=== PATIENT | male | born 1940 | race Caucasian/White ===

== ENCOUNTER 2016-11-24 21:38 | Inpatient (IN) | payer OTHER ==
[~2016-11-24] VITALS: Ht 177.8 cm; Wt 101.3 kg
[2016-11-24 21:05] VITALS: BP_SYST 111; BP_SYST 115; BP_SYST 122; BP_DIAS 66; BP_DIAS 72; BP_DIAS 76
[2016-11-24] MEDS ORDERED: ERGO500017 PO (22:47)
[2016-11-24] MEDS ORDERED: SPIR25TA PO (22:47)
[2016-11-24] MEDS ORDERED: DIGO125T PO (22:47)
[2016-11-24] MEDS ORDERED: DABI150C PO (22:47)
[2016-11-24] MEDS ORDERED: TAMS0.4C2 PO (22:47)
[2016-11-24] MEDS ORDERED: LEVO75TA5 PO (22:47)
[2016-11-24] MEDS ORDERED: ALLO300T PO (22:47)
[2016-11-24] MEDS ORDERED: FURO80TA3 PO (22:47)
[2016-11-24] MEDS ORDERED: SIMV40TA3 PO (22:47)
[2016-11-24 23:19] LABS: HEMATOCRIT 38.3 % (39.2-51.8); HEMOGLOBIN 12.7 g/dL (13.7-18.0); WHITE BLOOD COUNT 9.3 x10^3/uL (3.4-10)
[2016-11-24 23:27] LABS: BLOOD UREA NITROGEN 44 mg/dL (7-18)
[2016-11-24] MEDS: SIMVASTATIN 40 MG TABLET PO SCH (23:30)
[2016-11-24] MEDS ORDERED: DIPHENHYDRAMINE 25 MG CAPSULE PO PRN (23:30)
[2016-11-24 23:35] LABS: ASPARTATE AMINO TRANSFERASE 23 U/L (15-37)
[2016-11-24 23:40] LABS: IS PT STATUS REG ER OR PRE ER? NO
[2016-11-25 02:00] VITALS: BP 106/67
[2016-11-25 05:36] LABS: IS PT STATUS REG ER OR PRE ER? NO
[2016-11-25 08:00] VITALS: BP 96/58
[2016-11-25] MEDS ORDERED: REGADENOSON 0.4 MG/5 ML SYRINGE ONE (08:25)
[2016-11-25] MEDS ORDERED: DABIGATRAN 150 MG CAPSULE PO SCH ×3 (09:00→21:00)
[2016-11-25] MEDS ORDERED: DIGOXIN 0.125 MG TABLET PO SCH (09:00)
[2016-11-25] MEDS ORDERED: ALLOPURINOL 300 MG TABLET PO SCH ×2 (09:00)
[2016-11-25] MEDS ORDERED: SPIRONOLACTONE 25 MG TABLET PO SCH (09:00)
[2016-11-25] MEDS: TAMSULOSIN 0.4 MG CAP.ER.24H PO SCH (09:29)
[2016-11-25] MEDS: FUROSEMIDE 80 MG TABLET PO SCH (09:29)
[2016-11-25] MEDS: LEVOTHYROXINE 75 MCG TABLET PO SCH (09:29)
[2016-11-25] MEDS: ALLOPURINOL 300 MG TABLET PO SCH (09:30)
[2016-11-25] MEDS: DIGOXIN 0.125 MG TABLET PO SCH (09:30)
[2016-11-25] MEDS: SPIRONOLACTONE 25 MG TABLET PO SCH (09:30)
[2016-11-25 15:56] VITALS: BP 97/60
[2016-11-25] MEDS: SIMVASTATIN 40 MG TABLET PO SCH (20:10)
[2016-11-25 20:35] VITALS: BP 107/55
[2016-11-26 03:39] VITALS: BP 99/62
[2016-11-26 08:20] VITALS: BP 109/66
[2016-11-26] MEDS: ALLOPURINOL 300 MG TABLET PO SCH (08:39)
[2016-11-26] MEDS: SPIRONOLACTONE 25 MG TABLET PO SCH (08:39)
[2016-11-26] MEDS: DIGOXIN 0.125 MG TABLET PO SCH (08:39)
[2016-11-26] MEDS: TAMSULOSIN 0.4 MG CAP.ER.24H PO SCH (08:39)
[2016-11-26] MEDS: LEVOTHYROXINE 75 MCG TABLET PO SCH (08:39)
[2016-11-26] MEDS: FUROSEMIDE 80 MG TABLET PO SCH (08:40)
[2016-11-26 10:25] LABS: BLOOD UREA NITROGEN 39 mg/dL (7-18)
[2016-11-26] MEDS: DABIGATRAN 75 MG CAPSULE PO SCH ×2 (11:25→21:36)
[2016-11-26 14:42] VITALS: BP 104/64
[2016-11-26 20:39] VITALS: BP 109/70
[2016-11-26] MEDS: SIMVASTATIN 40 MG TABLET PO SCH (21:36)
[2016-11-27 02:40] VITALS: BP 106/69
[2016-11-27 04:15] LABS: BLOOD UREA NITROGEN 40 mg/dL (7-18)
[2016-11-27] MEDS: LEVOTHYROXINE 75 MCG TABLET PO SCH (06:20)
[2016-11-27 08:00] VITALS: BP 108/70
[2016-11-27] MEDS: POTASSIUM CHLORIDE 10 MEQ TABLET.ER PO SCH ×2 (09:00→21:21)
[2016-11-27] MEDS ORDERED: ALLOPURINOL 300 MG TABLET PO SCH (09:00)
[2016-11-27] MEDS ORDERED: POTASSIUM CHLORIDE 10% 20 MEQ/15 ML UDC PO SCH (09:00)
[2016-11-27] MEDS: ALLOPURINOL 100 MG TABLET PO SCH (09:58)
[2016-11-27] MEDS: FUROSEMIDE 20 MG/2 ML IV SCH ×2 (10:10→17:47)
[2016-11-27] MEDS: TAMSULOSIN 0.4 MG CAP.ER.24H PO SCH (10:10)
[2016-11-27] MEDS: DIGOXIN 0.125 MG TABLET PO SCH (10:11)
[2016-11-27] MEDS: DABIGATRAN 75 MG CAPSULE PO SCH ×2 (10:11→21:21)
[2016-11-27 13:47] VITALS: BP 108/71
[2016-11-27 20:00] VITALS: BP 104/68
[2016-11-27] MEDS: SIMVASTATIN 40 MG TABLET PO SCH (21:21)
[2016-11-28 02:29] VITALS: BP 106/70
[2016-11-28 04:58] LABS: BLOOD UREA NITROGEN 33 mg/dL (7-18)
[2016-11-28] MEDS: LEVOTHYROXINE 75 MCG TABLET PO SCH (06:34)
[2016-11-28 07:25] VITALS: BP 117/76
[2016-11-28] MEDS: ALLOPURINOL 100 MG TABLET PO SCH (09:59)
[2016-11-28] MEDS: TAMSULOSIN 0.4 MG CAP.ER.24H PO SCH (09:59)
[2016-11-28] MEDS: DIGOXIN 0.125 MG TABLET PO SCH (09:59)
[2016-11-28] MEDS: POTASSIUM CHLORIDE 10 MEQ TABLET.ER PO SCH ×2 (10:00→20:14)
[2016-11-28] MEDS: FUROSEMIDE 20 MG/2 ML IV SCH ×3 (10:01→19:56)
[2016-11-28 14:17] VITALS: BP 103/64
[2016-11-28 18:41] VITALS: BP 110/67
[2016-11-28] MEDS: SIMVASTATIN 40 MG TABLET PO SCH (19:58)
[2016-11-29 01:50] VITALS: BP 103/64
[2016-11-29 04:54] LABS: BLOOD UREA NITROGEN 33 mg/dL (7-18)
[2016-11-29] MEDS: LEVOTHYROXINE 75 MCG TABLET PO SCH (06:48)
[2016-11-29] MEDS ORDERED: SODIUM BICARB 8.4%,50ML SYR. 150 MEQ in DEXTROSE 5% 1,000 ML IV SCH (07:44)
[2016-11-29] MEDS: TAMSULOSIN 0.4 MG CAP.ER.24H PO SCH (08:14)
[2016-11-29] MEDS: ALLOPURINOL 100 MG TABLET PO SCH (08:14)
[2016-11-29] MEDS: DIGOXIN 0.125 MG TABLET PO SCH (08:14)
[2016-11-29] MEDS: POTASSIUM CHLORIDE 10 MEQ TABLET.ER PO SCH ×2 (08:14→20:22)
[2016-11-29 08:32] VITALS: BP 115/73
[2016-11-29] MEDS: ACETYLCYSTEINE 600 MG CAPSULE PO SCH ×3 (10:49→20:22)
[2016-11-29 13:45] VITALS: BP 100/63
[2016-11-29] MEDS ORDERED: LIDOCAINE 2%, 20ML ONE (14:54)
[2016-11-29] MEDS ORDERED: HEPARIN 1,000 UNITS/ML, 10ML ONE (14:54)
[2016-11-29] MEDS ORDERED: VERAPAMIL 2.5 MG/ML, 2ML ONE (14:54)
[2016-11-29] MEDS ORDERED: FENTANYL PF 100 MCG/2ML ONE (14:54)
[2016-11-29] MEDS ORDERED: BIVALIRUDIN 250 MG ONE (14:54)
[2016-11-29] MEDS ORDERED: MIDAZOLAM 1 MG/ML, 5ML ONE (14:54)
[2016-11-29] MEDS ORDERED: TICAGRELOR 90 MG TABLET ONE (14:54)
[2016-11-29] MEDS: FUROSEMIDE 40 MG/4 ML IV SCH ×2 (17:26→20:22)
[2016-11-29 19:30] VITALS: BP 95/56
[2016-11-29] MEDS: SIMVASTATIN 40 MG TABLET PO SCH (20:22)
[2016-11-30 01:36] VITALS: BP 102/66
[2016-11-30 06:13] LABS: BLOOD UREA NITROGEN 32 mg/dL (7-18)
[2016-11-30] MEDS: TAMSULOSIN 0.4 MG CAP.ER.24H PO SCH (08:45)
[2016-11-30] MEDS: DIGOXIN 0.125 MG TABLET PO SCH (08:46)
[2016-11-30] MEDS: LEVOTHYROXINE 75 MCG TABLET PO SCH (08:46)
[2016-11-30] MEDS: POTASSIUM CHLORIDE 10 MEQ TABLET.ER PO SCH ×2 (08:46→20:14)
[2016-11-30] MEDS: ALLOPURINOL 100 MG TABLET PO SCH (08:46)
[2016-11-30 08:50] VITALS: BP 97/60
[2016-11-30] MEDS: FUROSEMIDE 40 MG/4 ML IV SCH ×3 (08:58→20:14)
[2016-11-30 15:56] VITALS: BP 104/70
[2016-11-30 19:50] VITALS: BP 101/64
[2016-11-30] MEDS: SIMVASTATIN 40 MG TABLET PO SCH (20:14)
[2016-12-01 02:30] VITALS: BP 96/60
[2016-12-01 05:29] LABS: HEMOGLOBIN 12.4 g/dL (13.7-18.0); WHITE BLOOD COUNT 9.5 x10^3/uL (3.4-10)
[2016-12-01 05:34] LABS: BLOOD UREA NITROGEN 37 mg/dL (7-18)
[2016-12-01] MEDS: LEVOTHYROXINE 75 MCG TABLET PO SCH (06:08)
[2016-12-01 08:26] VITALS: BP 99/61
[2016-12-01] MEDS: FUROSEMIDE 40 MG/4 ML IV SCH (08:44)
[2016-12-01] MEDS: TAMSULOSIN 0.4 MG CAP.ER.24H PO SCH (08:44)
[2016-12-01] MEDS: POTASSIUM CHLORIDE 10 MEQ TABLET.ER PO SCH ×2 (08:44→21:24)
[2016-12-01] MEDS: ALLOPURINOL 100 MG TABLET PO SCH (08:44)
[2016-12-01] MEDS: DIGOXIN 0.125 MG TABLET PO SCH (08:44)
[2016-12-01 11:14] VITALS: BP 84/47
[2016-12-01 15:40] VITALS: BP 111/71
[2016-12-01] MEDS: FUROSEMIDE 80 MG TABLET PO SCH (18:29)
[2016-12-01 18:50] VITALS: BP 109/72
[2016-12-01] MEDS: SIMVASTATIN 40 MG TABLET PO SCH (21:24)
[2016-12-02 01:45] VITALS: BP 103/67
[2016-12-02 05:56] LABS: HEMATOCRIT 36.6 % (39.2-51.8); HEMOGLOBIN 12.1 g/dL (13.7-18.0); WHITE BLOOD COUNT 8.9 x10^3/uL (3.4-10)
[2016-12-02 06:18] LABS: BLOOD UREA NITROGEN 45 mg/dL (7-18)
[2016-12-02] MEDS: LEVOTHYROXINE 75 MCG TABLET PO SCH (06:39)
[2016-12-02 07:03] VITALS: BP 108/67
[2016-12-02] MEDS: ALLOPURINOL 100 MG TABLET PO SCH (07:55)
[2016-12-02] MEDS: FUROSEMIDE 80 MG TABLET PO SCH (07:55)
[2016-12-02] MEDS: POTASSIUM CHLORIDE 10 MEQ TABLET.ER PO SCH ×2 (07:55→20:59)
[2016-12-02] MEDS: TAMSULOSIN 0.4 MG CAP.ER.24H PO SCH (07:56)
[2016-12-02] MEDS: DIGOXIN 0.125 MG TABLET PO SCH (07:56)
[2016-12-02] MEDS ORDERED: DOPAMINE/D5W PMX 250 ML IV PRN (10:30)
[2016-12-02] MEDS: FUROSEMIDE 40 MG TABLET PO SCH ×2 (10:40→15:57)
[2016-12-02 12:49] VITALS: BP 95/56
[2016-12-02] MEDS: ONDANSETRON 2MG/ML, 2ML IVPush PRN (19:57)
[2016-12-02 20:32] VITALS: BP 99/55
[2016-12-02] MEDS: SIMVASTATIN 40 MG TABLET PO SCH (20:59)
[2016-12-03 02:54] VITALS: BP 114/61
[2016-12-03 04:31] LABS: HEMATOCRIT 38.3 % (39.2-51.8); HEMOGLOBIN 12.6 g/dL (13.7-18.0); WHITE BLOOD COUNT 11.5 x10^3/uL (3.4-10)
[2016-12-03 04:40] LABS: BLOOD UREA NITROGEN 52 mg/dL (7-18)
[2016-12-03] MEDS: LEVOTHYROXINE 75 MCG TABLET PO SCH (06:03)
[2016-12-03] MEDS: ONDANSETRON 2MG/ML, 2ML IVPush PRN ×2 (06:06→12:32)
[2016-12-03 07:34] VITALS: BP 100/56
[2016-12-03] MEDS: TAMSULOSIN 0.4 MG CAP.ER.24H PO SCH (09:13)
[2016-12-03] MEDS: DIGOXIN 0.125 MG TABLET PO SCH (09:14)
[2016-12-03] MEDS: ALLOPURINOL 100 MG TABLET PO SCH (09:14)
[2016-12-03] MEDS ORDERED: PROMETHAZINE 25 MG/ML, 1ML IM PRN (13:00)
[2016-12-03] MEDS: POTASSIUM CHLORIDE 10 MEQ TABLET.ER PO SCH ×2 (13:17→19:47)
[2016-12-03] MEDS ORDERED: DIPHENHYDRAMINE 50 MG CAPSULE PO PRN (14:52)
[2016-12-03 15:05] VITALS: BP 118/73
[2016-12-03 16:40] VITALS: BP 114/69
[2016-12-03] MEDS: SIMVASTATIN 40 MG TABLET PO SCH (19:48)
[2016-12-03 20:36] VITALS: BP 115/73
[2016-12-04 01:34] VITALS: BP 100/66
[2016-12-04 05:55] LABS: HEMATOCRIT 39.7 % (39.2-51.8); HEMOGLOBIN 12.9 g/dL (13.7-18.0); WHITE BLOOD COUNT 9.6 x10^3/uL (3.4-10)
[2016-12-04] MEDS: LEVOTHYROXINE 75 MCG TABLET PO SCH (06:00)
[2016-12-04 06:47] LABS: ASPARTATE AMINO TRANSFERASE 25 U/L (15-37); BLOOD UREA NITROGEN 58 mg/dL (7-18)
[2016-12-04 07:11] VITALS: BP 97/58
[2016-12-04] MEDS ORDERED: FUROSEMIDE 100 MG/10 ML IV ONE (09:00)
[2016-12-04] MEDS ORDERED: FUROSEMIDE 40 MG/4 ML ONE (09:05)
[2016-12-04] MEDS: TAMSULOSIN 0.4 MG CAP.ER.24H PO SCH (09:31)
[2016-12-04] MEDS: DIGOXIN 0.125 MG TABLET PO SCH (09:31)
[2016-12-04] MEDS: POTASSIUM CHLORIDE 10 MEQ TABLET.ER PO SCH (09:32)
[2016-12-04] MEDS: ALLOPURINOL 100 MG TABLET PO SCH (09:35)
[2016-12-04 13:28] VITALS: BP 109/58
[2016-12-04 14:05] LABS: BLOOD UREA NITROGEN 62 mg/dL (7-18)
[2016-12-04 20:35] VITALS: BP 106/67
[2016-12-04] MEDS: HEPARIN 5,000 UNITS/ML, 1ML SQ SCH (20:42)
[2016-12-04] MEDS: SIMVASTATIN 40 MG TABLET PO SCH (20:42)
[2016-12-05] VITALS (8 sets, daily range): BP systolic 93–117; BP diastolic 57–65
[2016-12-05] MEDS: HEPARIN 5,000 UNITS/ML, 1ML SQ SCH (04:12)
[2016-12-05] MEDS: LEVOTHYROXINE 75 MCG TABLET PO SCH (04:12)
[2016-12-05 05:45] LABS: HEMATOCRIT 37.4 % (39.2-51.8); HEMOGLOBIN 12.4 g/dL (13.7-18.0)
[2016-12-05 06:15] LABS: BLOOD UREA NITROGEN 60 mg/dL (7-18)
[2016-12-05] MEDS: TAMSULOSIN 0.4 MG CAP.ER.24H PO SCH ×2 (09:00→19:00)
[2016-12-05] MEDS: DIGOXIN 0.125 MG TABLET PO SCH (09:00)
[2016-12-05] MEDS ORDERED: FILTER 0.22 MICRON FOR AMIODARONE IV PRN (09:30)
[2016-12-05] MEDS ORDERED: AMIODARONE 150 MG in DEXTROSE 5% 100 ML IV ONE (09:30)
[2016-12-05] MEDS: ALLOPURINOL 100 MG TABLET PO SCH (09:47)
[2016-12-05] MEDS ORDERED: FENTANYL PF 100 MCG/2ML ONE (13:17)
[2016-12-05] MEDS ORDERED: MIDAZOLAM 1 MG/ML, 5ML ONE ×2 (13:17)
[2016-12-05] MEDS ORDERED: LIDOCAINE 2%, 20ML ONE (13:49)
[2016-12-05] MEDS ORDERED: LIDOCAINE 1%, 20ML ONE (13:49)
[2016-12-05] MEDS ORDERED: FLUMAZENIL 0.1 MG/1 ML, 5ML ONE (14:08)
[2016-12-05] MEDS ORDERED: CEFAZOLIN PMX 1GM/50ML 50 ML ONE (14:41)
[2016-12-05] MEDS: SIMVASTATIN 40 MG TABLET PO SCH (21:00)
[2016-12-06 02:00] VITALS: BP 96/59
[2016-12-06 05:57] LABS: HEMATOCRIT 37.9 % (39.2-51.8); HEMOGLOBIN 12.4 g/dL (13.7-18.0); WHITE BLOOD COUNT 8.4 x10^3/uL (3.4-10)
[2016-12-06 06:10] LABS: BLOOD UREA NITROGEN 39 mg/dL (7-18)
[2016-12-06] MEDS: LEVOTHYROXINE 75 MCG TABLET PO SCH (06:21)
[2016-12-06 07:43] VITALS: BP 99/63
[2016-12-06] MEDS: DIGOXIN 0.125 MG TABLET PO SCH (09:46)
[2016-12-06] MEDS: ALLOPURINOL 100 MG TABLET PO SCH (09:46)
[2016-12-06 10:45] LABS: PTH INTACT INTERPRETATION ** Comment **
[2016-12-06 11:13] LABS: PARATHYROID HORMONE INTACT 106.5 pg/mL (14-72)
[2016-12-06 14:31] VITALS: BP 88/56
[2016-12-06 14:33] VITALS: BP 93/56
[2016-12-06 15:18] VITALS: BP 112/66
[2016-12-06] MEDS ORDERED: WARFARIN 5 MG TABLET PO-COUM ONE (18:00)
[2016-12-06] MEDS: SIMVASTATIN 40 MG TABLET PO SCH (20:39)
[2016-12-06] MEDS: TAMSULOSIN 0.4 MG CAP.ER.24H PO SCH (20:39)
[2016-12-06 21:39] VITALS: BP 96/55
[2016-12-07 01:43] VITALS: BP 94/59
[2016-12-07] MEDS: LEVOTHYROXINE 75 MCG TABLET PO SCH (05:26)
[2016-12-07 05:59] LABS: HEMATOCRIT 36.3 % (39.2-51.8); WHITE BLOOD COUNT 8.3 x10^3/uL (3.4-10)
[2016-12-07 06:10] LABS: BLOOD UREA NITROGEN 29 mg/dL (7-18)
[2016-12-07 06:13] LABS: ASPARTATE AMINO TRANSFERASE 26 U/L (15-37)
[2016-12-07 07:49] VITALS: BP 98/61
[2016-12-07] MEDS: TAMSULOSIN 0.4 MG CAP.ER.24H PO SCH (08:44)
[2016-12-07] MEDS: ALLOPURINOL 100 MG TABLET PO SCH (08:44)
[2016-12-07] MEDS: DIGOXIN 0.125 MG TABLET PO SCH (08:44)
[2016-12-07] MEDS ORDERED: BISACODYL 10 MG SUPP PR PRN (10:00)
[2016-12-07 10:05] LABS: HEP B SURF. AB < 3.1 mIU/mL (0.0-10.0)
[2016-12-07 15:02] VITALS: BP 102/58
[2016-12-07] MEDS: IRON SUCROSE COMPLEX 100MG/5ML IV SCH (15:02)
[2016-12-07] MEDS: DOCUSATE 100 MG CAPSULE PO SCH (15:02)
[2016-12-07] MEDS ORDERED: WARFARIN 5 MG TABLET PO-COUM ONE (18:00)
[2016-12-07 19:06] VITALS: BP 103/61
[2016-12-07] MEDS: SENNA/DOCUSATE TABLET PO SCH (20:33)
[2016-12-07] MEDS: SIMVASTATIN 40 MG TABLET PO SCH (20:33)
[2016-12-07] MEDS ORDERED: ALBUMIN HUMAN 25% 50 ML IV PRN (23:00)
[2016-12-07] MEDS ORDERED: ALBUMIN HUMAN 25% 100 ML IV PRN (23:00)
[2016-12-08] VITALS (7 sets, daily range): BP systolic 81–98; BP diastolic 54–68
[2016-12-08 04:53] LABS: HEMATOCRIT 35.3 % (39.2-51.8); HEMOGLOBIN 11.6 g/dL (13.7-18.0); WHITE BLOOD COUNT 8.9 x10^3/uL (3.4-10)
[2016-12-08 05:03] LABS: BLOOD UREA NITROGEN 21 mg/dL (7-18)
[2016-12-08 05:07] LABS: ASPARTATE AMINO TRANSFERASE 41 U/L (15-37)
[2016-12-08] MEDS: LEVOTHYROXINE 75 MCG TABLET PO SCH (05:16)
[2016-12-08] MEDS: DIGOXIN 0.125 MG TABLET PO SCH (09:00)
[2016-12-08] MEDS: DOCUSATE 100 MG CAPSULE PO SCH (09:04)
[2016-12-08] MEDS: TAMSULOSIN 0.4 MG CAP.ER.24H PO SCH (09:04)
[2016-12-08] MEDS: ALLOPURINOL 100 MG TABLET PO SCH (09:04)
[2016-12-08] MEDS: NEUTRA PHOS K 250 MG TABLET PO SCH ×2 (11:00→22:29)
[2016-12-08] MEDS: MIDODRINE 5 MG TABLET PO SCH ×3 (11:16→22:06)
[2016-12-08] MEDS: IRON SUCROSE COMPLEX 100MG/5ML IV SCH (16:22)
[2016-12-08] MEDS ORDERED: WARFARIN 7.5 MG TABLET PO-COUM ONE (18:00)
[2016-12-08] MEDS: SENNA/DOCUSATE TABLET PO SCH (22:05)
[2016-12-08] MEDS: SIMVASTATIN 40 MG TABLET PO SCH (22:06)
[2016-12-09 00:15] VITALS: BP 107/65
[2016-12-09 05:46] LABS: HEMATOCRIT 37.4 % (39.2-51.8); HEMOGLOBIN 12.3 g/dL (13.7-18.0); WHITE BLOOD COUNT 8.8 x10^3/uL (3.4-10)
[2016-12-09 06:06] LABS: ASPARTATE AMINO TRANSFERASE 45 U/L (15-37); BLOOD UREA NITROGEN 21 mg/dL (7-18)
[2016-12-09] MEDS: LEVOTHYROXINE 75 MCG TABLET PO SCH (06:36)
[2016-12-09 06:44] VITALS: BP 92/61
[2016-12-09] MEDS: DOCUSATE 100 MG CAPSULE PO SCH (10:03)
[2016-12-09] MEDS: TAMSULOSIN 0.4 MG CAP.ER.24H PO SCH (10:03)
[2016-12-09] MEDS: MIDODRINE 5 MG TABLET PO SCH ×3 (10:03→21:22)
[2016-12-09] MEDS: DIGOXIN 0.125 MG TABLET PO SCH (10:04)
[2016-12-09] MEDS: ALLOPURINOL 100 MG TABLET PO SCH (10:04)
[2016-12-09] MEDS: LACTULOSE 20 GM/30 ML UDC PO PRN (11:50)
[2016-12-09 13:35] VITALS: BP 95/59
[2016-12-09] MEDS: IRON SUCROSE COMPLEX 100MG/5ML IV SCH (14:58)
[2016-12-09] MEDS ORDERED: WARFARIN 10 MG TABLET PO-COUM ONE (18:00)
[2016-12-09 19:12] VITALS: BP 97/60
[2016-12-09] MEDS: SIMVASTATIN 40 MG TABLET PO SCH (21:22)
[2016-12-10 02:19] VITALS: BP 90/60
[2016-12-10 05:21] LABS: HEMATOCRIT 36.2 % (39.2-51.8); HEMOGLOBIN 12.1 g/dL (13.7-18.0); WHITE BLOOD COUNT 10.1 x10^3/uL (3.4-10)
[2016-12-10 05:32] LABS: BLOOD UREA NITROGEN 33 mg/dL (7-18)
[2016-12-10 06:54] VITALS: BP 102/59
[2016-12-10] MEDS: LEVOTHYROXINE 75 MCG TABLET PO SCH (07:46)
[2016-12-10] MEDS: DOCUSATE 100 MG CAPSULE PO SCH (07:47)
[2016-12-10] MEDS: TAMSULOSIN 0.4 MG CAP.ER.24H PO SCH (07:47)
[2016-12-10] MEDS: MIDODRINE 5 MG TABLET PO SCH ×3 (07:47→20:11)
[2016-12-10] MEDS: ALLOPURINOL 100 MG TABLET PO SCH (07:47)
[2016-12-10] MEDS: DIGOXIN 0.125 MG TABLET PO SCH (13:03)
[2016-12-10] MEDS: LACTULOSE 20 GM/30 ML UDC PO PRN (13:03)
[2016-12-10] MEDS: IRON SUCROSE COMPLEX 100MG/5ML IV SCH (15:54)
[2016-12-10 16:42] VITALS: BP 94/60
[2016-12-10] MEDS ORDERED: MAGNESIUM CITRATE 300ML ORAL SOL PO ONE (18:00)
[2016-12-10] MEDS ORDERED: WARFARIN 2 MG TABLET PO-COUM ONE (18:00)
[2016-12-10] MEDS: SENNA/DOCUSATE TABLET PO SCH (18:01)
[2016-12-10 19:47] VITALS: BP 95/60
[2016-12-10] MEDS: SIMVASTATIN 40 MG TABLET PO SCH (20:11)
[2016-12-11 02:19] VITALS: BP 94/53
[2016-12-11] MEDS: LEVOTHYROXINE 75 MCG TABLET PO SCH (05:12)
[2016-12-11 05:48] LABS: HEMATOCRIT 35.3 % (39.2-51.8); HEMOGLOBIN 11.6 g/dL (13.7-18.0); WHITE BLOOD COUNT 10.3 x10^3/uL (3.4-10)
[2016-12-11 05:53] LABS: BLOOD UREA NITROGEN 23 mg/dL (7-18)
[2016-12-11 07:30] VITALS: BP_SYST 115; BP_SYST 95; BP_DIAS 57; BP_DIAS 78
[2016-12-11] MEDS: SENNA/DOCUSATE TABLET PO SCH (07:55)
[2016-12-11] MEDS: ALLOPURINOL 100 MG TABLET PO SCH (07:55)
[2016-12-11] MEDS: MIDODRINE 5 MG TABLET PO SCH ×3 (07:56→20:16)
[2016-12-11] MEDS: TAMSULOSIN 0.4 MG CAP.ER.24H PO SCH (07:56)
[2016-12-11] MEDS ORDERED: CHOL200040 PO (09:01)
[2016-12-11] MEDS ORDERED: DOCU-131 PO (09:01)
[2016-12-11] MEDS ORDERED: ALLO100T30 PO (09:01)
[2016-12-11] MEDS ORDERED: MIDO5TAB PO (09:01)
[2016-12-11] MEDS ORDERED: FERR324T8 PO (09:01)
[2016-12-11] MEDS ORDERED: WARF2TAB PO (09:01)
[2016-12-11 13:02] VITALS: BP 80/53
[2016-12-11] MEDS: DIGOXIN 0.125 MG TABLET PO SCH (13:02)
[2016-12-11] MEDS: IRON SUCROSE COMPLEX 100MG/5ML IV SCH (15:12)
[2016-12-11] MEDS ORDERED: WARFARIN 2 MG TABLET PO-COUM ONE (18:00)
[2016-12-11 19:47] VITALS: BP 79/51
[2016-12-11] MEDS: SIMVASTATIN 40 MG TABLET PO SCH (20:16)
[2016-12-12 01:53] VITALS: BP 91/51
[2016-12-12] MEDS: LEVOTHYROXINE 75 MCG TABLET PO SCH (05:55)
[2016-12-12 07:07] VITALS: BP_SYST 92; BP_SYST 94; BP_DIAS 56; BP_DIAS 58
[2016-12-12] MEDS: TAMSULOSIN 0.4 MG CAP.ER.24H PO SCH (09:15)
[2016-12-12] MEDS: MIDODRINE 5 MG TABLET PO SCH (09:16)
[2016-12-12] MEDS: SENNA/DOCUSATE TABLET PO SCH (09:17)
[2016-12-12] MEDS: DIGOXIN 0.125 MG TABLET PO SCH (09:18)
[2016-12-12] MEDS: ALLOPURINOL 100 MG TABLET PO SCH (09:19)
[2016-12-12] MEDS ORDERED: FLU VACC QS2017-18 (36MOS+) UP/PF 0.5 ML IM-VACC ONE (11:00)
[2016-12-12 11:29] VITALS: BP 116/74
== END 2016-12-12 11:40 | disposition home or self-care (01) | DRG 673 ==
LOC: 5SO 21:38
PROVIDERS: ADMIT Internal Medicine; ATTEND Internal Medicine
PROC: 4A023N7 Measurement of Cardiac Sampling and Pressure, Left Heart, Percutaneous Approach (ICD-10-PCS; principal; 2016-11-29)
PROC: B2111ZZ Fluoroscopy of Multiple Coronary Arteries using Low Osmolar Contrast (ICD-10-PCS; 2016-11-29)
PROC: B2151ZZ Fluoroscopy of Left Heart using Low Osmolar Contrast (ICD-10-PCS; 2016-11-29)
PROC: 0JH63XZ Insertion of Tunneled Vascular Access Device into Chest Subcutaneous Tissue and Fascia, Percutaneous Approach (ICD-10-PCS; 2016-12-05)
PROC: 02HV33Z Insertion of Infusion Device into Superior Vena Cava, Percutaneous Approach (ICD-10-PCS; 2016-12-05)
PROC: B548ZZA Ultrasonography of Superior Vena Cava, Guidance (ICD-10-PCS; 2016-12-05)
PROC: 0W9B3ZZ Drainage of Left Pleural Cavity, Percutaneous Approach (ICD-10-PCS; 2016-12-05)
PROC: 0W993ZZ Drainage of Right Pleural Cavity, Percutaneous Approach (ICD-10-PCS; 2016-12-05)
DX: N17.0 Acute kidney failure with tubular necrosis (principal); I21.4 Non-ST elevation (NSTEMI) myocardial infarction; E43 Unspecified severe protein-calorie malnutrition; I50.33 Acute on chronic diastolic (congestive) heart failure; D68.69 Other thrombophilia; D68.59 Other primary thrombophilia; I48.2 Chronic atrial fibrillation; E87.1 Hypo-osmolality and hyponatremia; I48.91 Unspecified atrial fibrillation; I13.0 Hypertensive heart and chronic kidney disease with heart failure and stage 1 through stage 4 chronic kidney disease, or unspecified chronic kidney disease; N18.4 Chronic kidney disease, stage 4 (severe); D63.8 Anemia in other chronic diseases classified elsewhere; E03.9 Hypothyroidism, unspecified; E78.5 Hyperlipidemia, unspecified; G47.33 Obstructive sleep apnea (adult) (pediatric); I08.1 Rheumatic disorders of both mitral and tricuspid valves; J44.9 Chronic obstructive pulmonary disease, unspecified; M10.9 Gout, unspecified; N40.0 Benign prostatic hyperplasia without lower urinary tract symptoms; Z95.0 Presence of cardiac pacemaker; Z79.01 Long term (current) use of anticoagulants
CPT/HCPCS: 32555; 36415; 36558; 71020; 74000; 76700; 76770; 76937; 77001; 78452; 80048; 80053; 80069; 80076; 80162; 81001; 82040; 82306; 82310; 82533; 82570; 82728; 83540; 83550; 83690; 83735; 83880; 83970; 84100; 84132; 84300; 84484; 84540; 84550; 85025; 85610; 86480; 86704; 86706; 87086; 87340; 93005; 93017; 93306; 93458; 99156; 99157; 99285; C1894; J0583; J0690; J1265; J1644; J1756; J1940; J2250; J2405; J2550; J2785; J3010; J3490; J7070; P9047; A9502; C1750; C9898; J0282; J1642; Q9967